=== PATIENT | female | born 1995 | race Caucasian/White ===

== ENCOUNTER 2017-12-01 18:32 | Emergency (ER) | payer SELFPAY ==
[~2017-12-01] VITALS: Ht 154.9 cm; Wt 42.4 kg
[2017-12-01 18:45] VITALS: BP 98/62
[2017-12-01] MEDS ORDERED: DEXAMETHASONE 4 MG/ML, 1ML ONE (19:46)
[2017-12-01] MEDS ORDERED: DEXAMETHASONE 4 MG/ML, 1ML PO ONE (20:00)
== END 2017-12-01 20:03 | disposition home or self-care (01) ==
LOC: ED 19:50
DX: J02.0 Streptococcal pharyngitis (principal); F17.210 Nicotine dependence, cigarettes, uncomplicated
CPT/HCPCS: 99283; J1100

== ENCOUNTER 2019-03-05 01:08 | Emergency (ER) | payer SELFPAY ==
[~2019-03-05] VITALS: Ht 154.9 cm; Wt 42.1 kg
--- NOTE | 2019-03-05 01:37 | NUR ---
BREAK RN: Pt resting on jerry, states that she had a sudden onset of chest tightness and difficulty taking a deep breath while driving. Pt states that the pain has decreased but is not gone. Pt notes that she has a had a productive cough and is unable to determine for how long, states that the mucous she is coughing up is yellow. VSS. Pt aware of plan for medications and chest XR.
[2019-03-05 01:38] VITALS: BP 118/79
[2019-03-05] MEDS ORDERED: ACETAMINOPHEN 325 MG TABLET ONE (01:41)
[2019-03-05] MEDS ORDERED: IBUPROFEN 600 MG TABLET ONE (01:41)
--- NOTE | 2019-03-05 01:41 | NUR ---
Pt ambulated to imaging, with tech.
--- NOTE | 2019-03-05 01:44 | NUR ---
Pt back to room and medicated per DEC.
[2019-03-05] MEDS ORDERED: IBUPROFEN 600 MG TABLET PO ONE (02:00)
[2019-03-05] MEDS ORDERED: ACETAMINOPHEN 325 MG TABLET PO ONE (02:00)
--- NOTE | 2019-03-05 02:26 | NUR ---
Patient given discharge instructions and they have confirmed that they understand the instructions. Patient ambulatory with steady gait.
== END 2019-03-05 02:28 | disposition home or self-care (01) ==
LOC: ED 02:22
DX: R07.89 Other chest pain (principal); R05 Cough; R06.02 Shortness of breath; F17.200 Nicotine dependence, unspecified, uncomplicated
CPT/HCPCS: 71046; 93005; 99283